=== PATIENT | male | born 1990 | race Caucasian/White ===

== ENCOUNTER 2020-02-11 08:55 | Day surgery (SDC) | payer OTHER ==
[~2020-02-11] VITALS: Ht 195.6 cm; Wt 131.5 kg
[~2020-02-11 08:55] MED LIST: CALCIUM500 MG PO; FISH OIL 1,0001 EAC3 PO; ISENTRESS400 MG PO; MULTI-VITAMIN1 EACH PO; NAPROXEN500 MG PO; PENICILLIN V P500 MG PO; TRUVADA 100 MG1 EACH PO
--- NOTE | 2020-02-11 12:17 | NUR ---
02/11/20 1217 [place] 1159-PATIENT ARRIVED TO PACU ON 6L MASK NONAROUSABLE ORAL AIRWAY IN PLACE. RN DOING JAW THRUST TO MAINTAIN OPEN AIRWAY. RR EVEN. SR. IVF INFUSING 1215-PATIENTS HELAD TILTED TO SIDE PATIENT MAINTAING OWN AIRWAY NON AROUSABLE. RR EVEN. 6L MASK. DRESSING TO NECK CDI.
--- NOTE | 2020-02-12 06:40 | OR ---
[facility] [address], [place] [address] Signed DATE OF OPERATION: 02/11/2020 SURGEON: Zafar Thurston MD PREOPERATIVE DIAGNOSIS: Subcutaneous mass, posterior cervical midline. POSTOPERATIVE DIAGNOSIS: Subcutaneous mass, posterior cervical midline. PROCEDURE: Excision of subcutaneous mass, posterior cervical midline. ESTIMATED BLOOD LOSS: None. 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. He had noticed a lump underneath the skin of posterior midline about 10 years ago. He said it started quite [id number] size of a pea, now it is almost the size of a golf ball. To his knowledge, it has never drained or been infected. He said it is causing quite a bit of trouble particularly with his uniform and so forth. He finally went to his primary care provider. He was asked to see me with respect to the above. I had met with Pricila in the office and explained them these were quite indurated, tenacious, and often quite bloody and need to be done in the operating room with good lighting and electrocautery. We reviewed the expected intraop and postop course. He understands there is risk including, but not limited to bleeding, infection, scarring, change in contour of the skin as well as recurrent lesions in the same or other locations. He had expressed understanding and wished to proceed. DESCRIPTION OF PROCEDURE: I met with Pricila in our preop area. We both were able to agree on the lesion in his posterior midline. We marked that appropriately. After this, the patient was taken into the operating room and placed in the left lateral decubitus position under general endotracheal tube anesthesia. We started with the LMA, but we could not get a good seal, so we switched out to the endotracheal tube. He was given preoperative antibiotics along with subcutaneous heparin. SCDs were utilized. He was then prepped and draped in the usual sterile fashion. A standard transverse incision was made over the lesion and carried down around the lesion bluntly and with the cautery. It has the appearance of a classic sebaceous cyst. The cyst itself was probably 12, maybe 15 mm in Electronically Signed By: ZAFAR THURSTON MD 02/12/20 0640 PATIENT NAME: PRICILA RIVERA OPERATIVE REPORT DATE OF : [birth year] REPORT #: [id number] PHYSICIAN: ZAFAR THURSTON MD PCP: OUMAR SERNA PAC REPORT IS CONFIDENTIAL AND NOT TO BE RELEASED WITHOUT AUTHORIZATION [facility] [address], [place] [address] Signed diameter. The tissue around it was quite indurated and that did represent about 3 cm. The wound had been irrigated and suctioned out until clear. We injected local anesthetic into the wound. The dermis was reapproximated with interrupted 3-0 subcuticular Monocryl sutures. The skin edges were reapproximated with a running 6-0 fast absorbing plain gut suture. Dry gauze and tape were then applied. After this, table was rotated into the supine position, weaned from his anesthesia, extubated in the OR and taken to recovery room in stable condition. Zafar Thurston MD ALB/MODL /[id number] cc: Zafar Thurston MD Copies: ZAFAR THURSTON MD ~ Electronically Signed By: ZAFAR THURSTON MD 02/12/20 0640 PATIENT NAME: PRICILA RIVERA OPERATIVE REPORT DATE OF : [birth year] REPORT #: [id number] PHYSICIAN: ZAFAR THURSTON MD PCP: OUMAR SERNA PAC REPORT IS CONFIDENTIAL AND NOT TO BE RELEASED WITHOUT AUTHORIZATION
--- NOTE | 2020-02-13 17:32 | PATH ---
[facility] [address] [place], [place] [address] Signed SPECIMEN(S): A POSTERIOR NECK MASS SPECIMEN SOURCE: A. POSTERIOR NECK MASS CLINICAL HISTORY: Subcutaneous mass FINAL PATHOLOGIC DIAGNOSIS: Mass, subcutaneous posterior cervical: - Epidermal inclusion cyst. TWK:caw:C2NR MICROSCOPIC EXAMINATION: The lesion is a benign epidermal inclusion cyst without atypical features. TWK GROSS DESCRIPTION: The specimen, labeled "DW, #1," and designated on the requisition "subcutaneous mass posterior cervical," is received in formalin and consists of a ruptured subcutaneous cyst measuring 2.7 x 2.0 x 1.8 cm. The specimen is serially sectioned revealing a arizmendi cystic material. Glass Sander sections are submitted in cassette (A1). AT (under the direct supervision of a pathologist) The Gross Description was prepared using a voice recognition system. The report was reviewed for accuracy; however, sound-alike word errors, addition and/or deletions may occur. If there is any question about this report, please contact Client Services. PERFORMING LABORATORY: The technical component was performed by [facility], [address] [place] [id number] (Shoe Dyer: Nila Stout MD; CLIA# [id number]). Professional interpretation was performed by [facility], [address] [address] (CLIA# [id number]). Diagnostician: Yves Molina MD Pathologist Electronically Signed 02/13/2020 PATIENT NAME: PRICILA RIVERA PATHOLOGY DATE OF : [birth year] REPORT #: [id number] PHYSICIAN: GELA PATHOLOGY PCP: OUMAR SERNA PAC REPORT IS CONFIDENTIAL AND NOT TO BE RELEASED WITHOUT AUTHORIZATION [address] [address] Signed Copies: ~ PATIENT NAME: PRICILA RIVERA PATHOLOGY DATE OF : [birth year] REPORT #: [id number] PHYSICIAN: GELA SMITH PCP: OUMAR SERNA PAC REPORT IS CONFIDENTIAL AND NOT TO BE RELEASED WITHOUT AUTHORIZATION
== END 2020-02-11 13:50 | disposition home or self-care (01) ==
LOC: DS 08:55
PROVIDERS: Colon & Rectal Surgery
PROC: 0JB70ZZ Excision of Back Subcutaneous Tissue and Fascia, Open Approach (ICD-10-PCS; principal; 2020-02-11 10:45)
DX: L72.0 Epidermal cyst (principal)
CPT/HCPCS: 00300; J0330; J0690; J1644; J2001; J2250; J2704; J7121